=== PATIENT | male | born 2005 | race Two or more races ===

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

== ENCOUNTER 2024-11-07 19:46 | Emergency (ER) | payer MEDICAID ==
[~2024-11-07] VITALS: Ht 175.3 cm; Wt 76.9 kg
[2024-11-07 20:45] VITALS: BP 125/76; PULSE 68; RESP 18; TEMP 98; O2SAT 98
--- NOTE | 2024-11-07 21:18 | DVH ---
CLINICAL INDICATION: INJURY PAIN TECHNIQUE: XY R WRIST 3+ VIEW XRAY Comparison: None FINDINGS/IMPRESSION: : Comminuted and mildly displaced fracture of the distal radial metaphysis. Minimally displaced fracture of the styloid process of the ulna. Mildly displaced fracture of the midpole of the scaphoid. Diffuse soft-tissue swelling.
--- NOTE | 2024-11-07 21:46 | ED.PDOC ---
[place]. trauma (HPI) HPI Comments PRESENTS TO ED FOR RIGHT WRIST PAIN S/P FALL FROM SNOW BOARDING. [facility] INTACT. NOTED DEFORMITY TO THE RIGHT WRIST. Chief Complaint: Upper Extremity Time Seen by MD: 19:54 Primary Care Provider: JESENIAK Reviewed notes: Nurses Notes, Medications, Allergies Allergies: Coded Allergies: NO KNOWN ALLERGIES (Unverified , 02/05/10) Home Meds Active Scripts Ibuprofen (Ibuprofen) 800 Mg Tab, 1 TAB PO TID PRN for 7 Days, #21 TAB Prov:CECILLE RODRIGUEZ 11/07/24 Information Source: Patient Mode of Arrival: Ambulatory Family History Family History: Unobtainable Social History Smoker: Non-Smoker Alcohol: Denies ETOH Use Drugs: Denies Drug Use Lives In: Home Constitutional: denies: chills, diaphoresis, fatigue, fever, malaise, sweats, weakness, others EENTM: denies: blurred vision, double vision, ear bleeding, ear discharge, ear drainage, ear pain, ear ringing, eye pain, eye redness, hearing loss, mouth pain, mouth swelling, nasal discharge, nose bleeding, nose congestion, nose pain, photophobia, tearing, throat pain, throat swelling, voice changes, others Respiratory: denies: cough, hemoptysis, orthopnea, SOB at rest, shortness of breath, SOB with excertion, stridor, wheezing, others Cardiovascular: denies: chest pain, dizzy spells, diaphoresis, Dyspnea on exertion, edema, irregular heart beat, left arm pain, lightheadedness, palpitations, PND, syncope, others Gastrointestinal: denies: abdomen distended, abdominal pain, blood streaked bowels, constipated, diarrhea, dysphagia, difficulty swallowing, hematemesis, melena, nausea, poor appetite, poor fluid intake, rectal bleeding, rectal pain, vomiting, others Genitourinary: denies: burning, dysuria, flank pain, frequency, hematuria, incontinence, penile discharge, penile sore, pain, testicle pain, testicle swelling, urgency, others Neurological: denies: dizziness, fainting, headache, left sided numbness, left sided weakness, numbness, paresthesia, pre-existing deficit, right sided numbness, right sided weakness, seizure, speech problems, tingling, tremors, weakness, others Musculoskeletal: reports: others (RIGHT WRIST PAIN ); denies: back pain, gout, joint pain, joint swelling, muscle pain, muscle stiffness, neck pain Integumetry: denies: bruises, change in color, change in hair/nails, dryness, laceration, lesions, lumps, rash, wounds, others Allergic/Immunocompromised: denies: Difficulty Healing, Frequent Infections, Hives, Itching, others Hematologic/Lymphatic: denies: anemia, blood clots, easy bleeding, easy bruising, swollen glands, others Endocrine: denies: excessive hunger, excessive sweating, excessive thirst, excessive urination, flushing, intolerance to cold, intolerance to heat, unexplained weight gain, unexplained weight loss, others Psychiatric: denies: anxiety, bipolar disorder, depression, hopeless, panic disorder, schizophrenia, sleepless, suicidal, others Physical Exam General Appearance: No Apparent Distress, Normal HEENT: Pharynx Normal Neck: Full Range of Motion, Non-Tender Respiratory: Chest Non-Tender, Lungs Clear, No Respiratory Distress, Normal Breath Sounds Cardiovascular: No Edema, No JVD, No Murmur, No Gallop, Normal Peripheral Pulses, Regular Rate/Rhythm Breast Exam: Deferred Gastrointestinal: No Organomegaly, Non Tender, No Pulsatile Mass, Normal Bowel Sounds, Soft Genitalia: Deferred Pelvic: Deferred Rectal: Deferred Extremities: Normal capillary refill, Normal inspection, Normal range of motio n, Non-tender, No pedal edema Musculoskeletal : Location: Right Extremity Location: Wrist (MODERATE TENDERNESS OVER ANTERIOR WRIST AND PROXIMAL DORSAL ASPECT. NO LACS OR OPEN LESIONS. STRENGTH, SENSORY AND MOTION INTACT) Apperance: Normal Neurologic: Alert, transit mix operator II-XII nml as Tested, No Motor Deficits, Normal Affect, Normal Mood, No Sensory Deficits Cerebellar Function: Normal Reflexes: Normal Skin: Dry, Normal Color, Warm Lymphatic: No Adenopathy Was a procedure done? Was a procedure done?: No Differential Diagnosis Multiple Trauma: Fractures, Hematoma X-Ray, Labs, Meds, VS Vital Signs Date Time Temp Pulse Resp B/P (MAP) Pulse Ox O2 Delivery O2 Flow Rate FiO2 11/07/24 20:45 98.0 68 18 125/76 (92) 98 98.0 11/07/24 20:45 68 18 98 Room Air 11/07/24 20:18 98.0 68 18 125/76 (92) 98 X-Ray, Labs, Meds, VS Comment ORDERING PHYSICIAN: CECILLE RODRIGUEZ PROCEDURE(s): RWRI - R WRIST 3+ VIEW XRAY REASON: INJURY PAIN ORDER NUMBER(s): [id number], ACCESSION NUMBER(s): [id number] CLINICAL INDICATION: INJURY PAIN TECHNIQUE: XY R WRIST 3+ VIEW XRAY Comparison: None FINDINGS/IMPRESSION: : Comminuted and mildly displaced fracture of the distal radial metaphysis. Minimally displaced fracture of the styloid process of the ulna. Mildly displaced fracture of the midpole of the scaphoid. Diffuse soft-tissue swelling. ENT PLACED IN SPLINT. ADVISED THE IMPORTANCE OF FOLLOWING UP WITH [facility] DUE TO THE SCAPHOID FRACTURE POSSIBLE SURGICAL INTERVENTION BASED ON HEALING. FOLLOW UP WITH HIS PCP FOR REFERRAL TO [facility] WITHIN 2-3 DAYS. KEEP SPLINT ON UNTIL FOLLOWS WITH [facility] . SCRIPT IBUPROFEN THE PHARMACY MEDICATIONS PRESCRIBED SIDE EFFECTS DISCUSSED. ADVISED ON RICE. ON ER RETURN PRECAUTIONS PATIENT INDICATED UNDERSTANDING AGREES WITH DISCHARGE PLAN OF CARE. Time of 1ST Reevaluation: 21:45 Reevaluation 1ST: Improved Patient Education/Counseling: Diagnosis, Treatment, Prognosis, Need For Follow Up Family Education/Counseling: No Family Present Departure 1 Departure Time of Disposition: 21:45 Impression: Primary Impression: Fracture of scaphoid bone of right wrist Qualified Codes: S62.021A - Displaced fracture of middle third of navicular [scaphoid] bone of right wrist, initial encounter for closed fracture Additional Impressions: Closed fracture of metaphysis of distal end of radius Closed fracture of ulna, styloid process Qualified Codes: S52.614A - Nondisplaced fracture of right ulna styloid process, initial encounter for closed fracture Disposition: HOME / SELF CARE / HOMELESS Condition: Stable e-Prescriptions Ibuprofen (Ibuprofen) 800 Mg Tab 1 TAB PO TID PRN for 7 Days, #21 TAB Prov: CECILLE RODRIGUEZ 11/07/24 Discharged With: Self Critical Care Note Critical Care Time?: No Stability Stability form required: No CECILLE RODRIGUEZ Nov 07, 2024 21:46
[2024-11-07] MEDS ORDERED: IBUP-1456 PO (21:49)
== END 2024-11-07 21:55 | disposition home or self-care (01) ==
LOC: ER 19:46
DX: S62.011A Displaced fracture of distal pole of navicular [scaphoid] bone of right wrist, initial encounter for closed fracture (principal); S52.614A Nondisplaced fracture of right ulna styloid process, initial encounter for closed fracture; S52.391A Other fracture of shaft of radius, right arm, initial encounter for closed fracture; X58.XXXA Exposure to other specified factors, initial encounter; Y93.23 Activity, snow (alpine) (downhill) skiing, snowboarding, sledding, tobogganing and snow tubing; Y92.89 Other specified places as the place of occurrence of the external cause; Y99.8 Other external cause status
CPT/HCPCS: 29125; 73110